=== PATIENT | female | born 1990 | race Caucasian/White ===

== ENCOUNTER 2017-12-13 07:16 | Emergency (ER) | payer OTHER, BC ==
[~2017-12-13] VITALS: Ht 160 cm; Wt 57.4 kg
[~2017-12-13 07:16] MED LIST: ASPI325T17 PO; BUPR150T6 PO; CITA10TA8 PO; CLIN150C14 PO; HYDR-882 PO; IBUP-1223 PO; OXYC-302 PO
[2017-12-13] MEDS ORDERED: SERT50TA PO (07:48)
[2017-12-13] MEDS ORDERED: RISP1TAB3 PO (07:48)
[2017-12-13] MEDS ORDERED: CLON0.1T PO (07:50)
[2017-12-13] MEDS: hydrOXYzine 25 MG/ML IM PRN ×2 (09:10→09:12)
[2017-12-13 09:53] VITALS: BP 98/64
== END 2017-12-13 10:16 | disposition home or self-care (01) ==
LOC: ED 09:44
DX: F41.1 Generalized anxiety disorder (principal); G43.909 Migraine, unspecified, not intractable, without status migrainosus; Z86.73 Personal history of transient ischemic attack (TIA), and cerebral infarction without residual deficits; Z87.442 Personal history of urinary calculi
CPT/HCPCS: 71046; 93005; 96372; 99284; J3410

== ENCOUNTER 2018-07-16 16:17 | Emergency (ER) | payer BC, OTHER ==
[~2018-07-16 16:17] MED LIST changes: +CLON0.1T22 PO; +HYDR-3653 PO; -HYDR-882 PO; +RISP1TAB3 PO; +SERT50TA PO
[2018-07-16 16:20] VITALS: BP 117/77
--- NOTE | 2018-07-16 16:39 | NUR ---
pt bib remsa after being found down on the couch, cyanotic and unresponsive. per remsa, pt sats 36%. pt awoken and placed on oxygen. pt then became more awake. pt stated she took two 15mg percocet with an hour and then smoked marijuana. pt a&ox4. pt placed in room and placed on bp, cardiac, and cont. pulse oximeter. assessment completed. call light in reach. 2 side rails up and awaiting md.
[2018-07-16 17:10] LABS: MEAN CORPUSCULAR HGB CONC 32.8 g/dL (32.4-35.8); MEAN CORPUSCULAR VOLUME 88.6 fL (80-100); MEAN PLATELET VOLUME 7.9 fL (7.4-10.4); PLATELET COUNT 302 x10^3/uL (130-400); RED BLOOD COUNT 4.77 x10^6/uL (3.82-5.3); RED CELL DISTRIBUTION WIDTH 14.1 % (9.6-15.2)
--- NOTE | 2018-07-16 17:13 | NUR ---
pt assisted to br and urine collected and walked to lab.
[2018-07-16 17:18] LABS: ALBUMIN 3.7 g/dL (3.4-5.0); ANION GAP 5 mmol/L (5-15); CALCIUM 7.6 mg/dL (8.5-10.1); CHLORIDE 112 mmol/L (98-107); CREATININE 1.12 mg/dL (0.55-1.02); SALICYLATE LEVEL < 1.7 mg/dL (2.8-20.0)
[2018-07-16 17:19] LABS: ACETAMINOPHEN < 2 mcg/mL (10-30)
[2018-07-16 17:29] LABS: BASOPHILS # (AUTO) 0.09 x10^3/uL (0-0.1); BASOPHILS % (AUTO) 0 % (0-1); EOSINOPHILS # (AUTO) 0.02 x10^3/uL (0-0.4); EOSINOPHILS % (AUTO) 0 % (1-7); LYMPHOCYTES # (AUTO) 0.69 x10^3/uL (1-3.4); LYMPHOCYTES % (AUTO) 4 % (22-44); MD SCAN; MONOCYTES # (AUTO) 1.04 x10^3/uL (0.2-0.8); MONOCYTES % (AUTO) 5 % (2-9); NEUTROPHILS # (AUTO) 18.31 x10^3/uL (1.8-6.8); NEUTROPHILS % (AUTO) 91 % (42-75)
[2018-07-16 17:35] LABS: BARBITURATE SCREEN, URINE Negative (Negative); BENZODIAZEPINE SCREEN, URINE Negative (Negative); CANNABINOID SCREEN, URINE Positive (Negative); COCAINE SCREEN, URINE Positive (Negative); METHADONE SCREEN, URINE Negative (Negative); OPIATE SCREEN, URINE Negative (Negative)
[2018-07-16 17:38] LABS: AMPHETAMINE SCREEN, URINE Negative (Negative)
--- NOTE | 2018-07-16 19:04 | NUR ---
PT DISCHARGED WITH DISCHARGE INSTRUCTIONS AND FOLLOW UPS. FAMILY WITH PT
== END 2018-07-16 19:06 | disposition home or self-care (01) ==
LOC: ED 17:59
DX: T40.2X1A Poisoning by other opioids, accidental (unintentional), initial encounter (principal); Y92.9 Unspecified place or not applicable
CPT/HCPCS: 36415; 71045; 80048; 80307; 80329; 82040; 85025; 93005; 99284; G0480

== ENCOUNTER 2020-09-21 08:12 | Emergency (ER) | payer OTHER ==
[~2020-09-21] VITALS: Ht 160 cm; Wt 88.6 kg
[~2020-09-21 08:12] MED LIST changes: +BUPR150T22 PO; -BUPR150T6 PO; -CLIN150C14 PO; +CLIN150C15 PO; -OXYC-302 PO; +OXYC1TAB14 PO; -RISP1TAB3 PO; +RISP1TAB90 PO
[2020-09-21 08:19] VITALS: BP 137/77
--- NOTE | 2020-09-21 08:41 | NUR ---
BORING MACHINE OPERATOR DOUBLE END: PT AMBULATORY TO ROOM FROM LOBBY
--- NOTE | 2020-09-21 09:12 | NUR ---
PT C/O NOTICING BUG BITE ON LEFT BUTTOCK ON MONDAY. BEGAN FEELING "UNWELL" MONDAY EVENING WITH PAIN TO SITE OF BITE. PT DENIES ANY OTHER HOUSEHOLD MEMBERS HAVING BITES. NAD NOTED AT THIS TIME. PT LAYING IN BED, AWAITING ERMD EVAL.
[2020-09-21] MEDS ORDERED: LIDOCAINE-MPF 1%, 5ML INFIL ONE (10:00)
--- NOTE | 2020-09-21 10:04 | NUR ---
REPORT TO SOUMYA RIDLEY.
[2020-09-21] MEDS ORDERED: LIDOCAINE-MPF 1%, 5ML ONE (10:25)
== END 2020-09-21 10:54 | disposition home or self-care (01) ==
LOC: ED 08:57
DX: L02.31 Cutaneous abscess of buttock (principal); G43.909 Migraine, unspecified, not intractable, without status migrainosus; Z86.73 Personal history of transient ischemic attack (TIA), and cerebral infarction without residual deficits
CPT/HCPCS: 10060

== ENCOUNTER 2020-09-23 15:32 | Emergency (ER) | payer OTHER ==
[~2020-09-23] VITALS: Ht 160 cm; Wt 88.5 kg
[2020-09-23 15:53] VITALS: BP 114/71
[2020-09-23] MEDS ORDERED: NEOSPORIN OINT. PKT 1 PACKET ONE (16:46)
--- NOTE | 2020-09-23 17:15 | NUR ---
DISCHARGE INSTRUCTIONS REVIEWED WITH PT. ALL QUESTIONS ANSWERED AT THIS TIME.
== END 2020-09-23 17:16 | disposition home or self-care (01) ==
LOC: ED 16:33
DX: L02.31 Cutaneous abscess of buttock (principal)
CPT/HCPCS: 99284

== ENCOUNTER 2020-10-15 14:39 | Emergency (ER) | payer OTHER ==
[~2020-10-15] VITALS: Ht 160 cm; Wt 86.5 kg
--- NOTE | 2020-10-15 15:32 | NUR ---
DIRECTOR OF SALES: PT IN [facility]PT, TO GO TO ER ROOM UPON COMPLETION OF TESTING.
[2020-10-15 15:51] LABS: BASOPHILS % (AUTO) 1 % (0-1); EOSINOPHILS % (AUTO) 4 % (1-7); LYMPHOCYTES % (AUTO) 35 % (22-44); MEAN CORPUSCULAR HEMOGLOBIN 28.8 pg (27.0-34.8); MEAN CORPUSCULAR HGB CONC 34.4 g/dL (32.4-35.8); MEAN PLATELET VOLUME 7.4 fL (7.4-10.4); MONOCYTES % (AUTO) 8 % (2-9); NEUTROPHILS % (AUTO) 53 % (42-75); PLATELET COUNT 305 x10^3/uL (130-400); RED BLOOD COUNT 4.63 x10^6/uL (3.82-5.3); RED CELL DISTRIBUTION WIDTH 13.4 % (9.6-15.2)
[2020-10-15 16:00] LABS: MICROSCOPIC NOT IND
[2020-10-15 16:03] LABS: ALANINE AMINOTRANSFERASE 18 U/L (12-78); ALBUMIN 3.9 g/dL (3.4-5.0); ANION GAP 7 mmol/L (5-15); CALCIUM 8.7 mg/dL (8.5-10.1); CHLORIDE 108 mmol/L (98-107); CREATININE 0.68 mg/dL (0.55-1.02)
[2020-10-15 16:07] LABS: ALKALINE PHOSPHATASE 93 U/L (45-117); BILIRUBIN,TOTAL 0.5 mg/dL (0.2-1.0); TOTAL PROTEIN 7.4 g/dL (6.4-8.2)
--- NOTE | 2020-10-15 16:15 | NUR ---
ZULMA RN: PT C/O LEFT LOWER PAIN THAT GOES TO FLANK PAIN. VS STABLE. CALL LIGHT IN PLACE. NO ACUTE DISTRESS NOTED.
[2020-10-15 17:02] VITALS: BP 107/74
--- NOTE | 2020-10-15 17:14 | NUR ---
BREAK RN: ASKED ED MD ABOUT PAIN MEDICINE WILL PLACE ORDER
[2020-10-15] MEDS ORDERED: OMNIPAQUE 350 MG/ML, 100ML BOTTLE ONE (17:24)
[2020-10-15] MEDS ORDERED: KETOROLAC 30 MG/1 ML ONE (18:34)
[2020-10-15] MEDS ORDERED: KETOROLAC 30 MG/1 ML IVPush ONE (19:00)
== END 2020-10-15 18:53 | disposition home or self-care (01) ==
LOC: ED 15:09
DX: R10.32 Left lower quadrant pain (principal); R11.2 Nausea with vomiting, unspecified; Z90.710 Acquired absence of both cervix and uterus
CPT/HCPCS: 36415; 74018; 74177; 76770; 80053; 81003; 84703; 85025; 96374; 99285; J1885; Q9967